=== PATIENT | male | born 1985 | race Hispanic/Latino ===

== ENCOUNTER 2017-12-28 12:49 | Emergency (ER) | payer OTHER ==
[2017-12-28 13:10] VITALS: RESP 18; O2SAT 100
[2017-12-28 13:37] LABS: BASO # 0.03 K/mm3 (0.0-2.0); BASO % 0.5 % (0.0-3.0); EOS # 0.4 (0.0-0.7); EOS % 6.3 % (1.5-5.0); GRAN # 3.64 (1.4-6.5); GRAN % 57.1 % (50.0-68.0); HEMOGLOBIN 14.7 g/dL (14.0-18.0); LYMPH # 1.9 (1.2-3.4); LYMPH % 29.7 % (22.0-35.0); MEAN CELL VOLUME 88.9 fl (80.0-105.0); MEAN CORPUSCULAR HEMOGLOBIN 30.8 pg (25.0-35.0); MEAN CORPUSCULAR HGB CONC 34.6 g/dl (31.0-37.0); MONO # 0.4 (0.1-0.6); MONO % 6.4 % (1.0-6.0); RBC 4.78 10^6/uL (3.5-6.1); RED CELL DISTRIBUTION WIDTH 12.5 % (11.5-14.5); WHITE BLOOD COUNT 6.4 10^3/ul (4.5-11.0)
--- NOTE | 2017-12-28 13:45 | RAD ---
HISTORY: chest pain COMPARISON: None available TECHNIQUE: Chest, one view. FINDINGS: LUNGS: No focal consolidation. Please note that chest x-ray has limited sensitivity for the detection of pulmonary masses. PLEURA: No significant pleural effusion identified. No definite pneumothorax . CARDIOVASCULAR: The cardiomediastinal silhouette appears within normal limits of size. OSSEOUS STRUCTURES: No acute osseous abnormality identified. VISUALIZED UPPER ABDOMEN: Unremarkable. OTHER FINDINGS: None. IMPRESSION: No focal consolidation, significant pleural effusion, or definite pneumothorax identified.
[2017-12-28 13:49] LABS: INR 1.08; PARTIAL THROMBOPLASTIN TIME 24.8 Seconds (25.1-36.5); PROTHROMBIN TIME 12.3 SECONDS (9.4-12.5)
[2017-12-28 13:51] LABS: ALB/GLOB RATIO 1.5 (1.1-1.8); ALBUMIN 4.2 g/dL (3.0-4.8); ALT/SGPT 28 U/L (7-56); AST/SGOT 20 U/L (17-59); BLOOD UREA NITROGEN 11 mg/dL (7-21); CALCIUM 9.3 mg/dL (8.4-10.5); GFR NON-AFRICAN AMERICAN > 60
--- NOTE | 2017-12-28 13:59 | ED PDOC ---
Arrival/HPI - General Chief Complaint: Anxiety Time Seen by Provider: 12/28/17 13:19 Historian: Patient - History of Present Illness Narrative History of Present Illness (Text): 12/28/17 13:51 32yo male with pmhx of panic attack, bipolar who was bib EMS from [facility] complaint chest tightness, and feeling of lightheadedness. States he was started on Lamicatal 2weeks ago. Also notes that he used Marijuana this morning , but he have used it before. states the symptoms started after using the Marijuana. states he is stressed at work. Denies diaphoresis, fever, chills, nausea, vomiting, diarrhea, focal weakness, headache, visual changes, any other complaint. Past Medical History - Provider Review Nursing Documentation Reviewed: Yes - Infectious Disease Hx of Infectious Diseases: None - Cardiac Hx Cardiac Disorders: No - Pulmonary Hx Respiratory Disorders: No - Endocrine/Metabolic Hx Endocrine Disorders: No - Psychiatric Hx Psychophysiologic Disorder: Yes Hx Bipolar Disorder: Yes Hx Substance Use: Yes - Anesthesia Hx Anesthesia: No Family/Social History - Physician Review Nursing Documentation Reviewed: Yes Family/Social History: Unknown Family HX Smoking Status: Current Some Days Smoker Hx Alcohol Use: No Hx Substance Use: Yes Substance used: marijuana Allergies/Home Meds Allergies/Adverse Reactions: Allergies seafood Allergy (Uncoded 12/28/17 13:18) RASH Home Medications: Home Meds Medication Instructions Recorded Confirmed lamoTRIgine [LaMICtal] 50 mg PO BID 12/28/17 12/28/17 Review of Systems - Physician Review All systems were reviewed & negative as marked: Yes - Review of Systems Constitutional: Normal Eyes: Normal ENT: Normal Respiratory: Normal Cardiovascular: Chest Pain. absent: Palpitations, Edema, Calf Pain Gastrointestinal: Normal Genitourinary Male: Normal Musculoskeletal: Normal Skin: Normal Neurological: Normal Endocrine: Normal Hemo/Lymphatic: Normal Psychiatric: Normal Physical Exam Vital Signs Reviewed: Yes Vital Signs Temp Pulse Resp BP Pulse Ox 12/28/17 15:35 98 F 68 18 130/68 100 12/28/17 13:09 98.3 F 71 18 142/65 100 Temperature: Afebrile Blood Pressure: Normal Pulse: Regular Respiratory Rate: Normal Appearance: Positive for: Well-Appearing, Non-Toxic, Comfortable Pain Distress: None Mental Status: Positive for: Alert and Oriented X 3 - Systems Exam Head: Present: Atraumatic, Normocephalic Pupils: Present: PERRL Extroacular Muscles: Present: EOMI Conjunctiva: Present: Normal Mouth: Present: Moist Mucous Membranes Neck: Present: Normal Range of Motion Respiratory/Chest: Present: Clear to Auscultation, Good Air Exchange. No: Respiratory Distress, Accessory Muscle Use Cardiovascular: Present: Regular Rate and Rhythm, Normal S1, S2. No: Murmurs Abdomen: No: Tenderness, Distention, Peritoneal Signs Back: Present: Normal Inspection Upper Extremity: Present: Normal Inspection. No: Cyanosis, Edema Lower Extremity: Present: Normal Inspection. No: Edema Neurological: Present: GCS=15, CN II-XII Intact, Speech Normal Skin: Present: Warm, Dry, Normal Color. No: Rashes Psychiatric: Present: Alert, Oriented x 3, Normal Insight, Normal Concentration Medical Decision Making ED Course and Treatment: 12/28/17 19:43 Pt in ED for stated history. He was not in any distress in ED. He notes that he had similar episode the last time he had panic attack. EKG NSR #[id number] Lab was ordered and unremarkable. UDS +THC Result was DW the pt. He noted that his symptoms resolved in ED and was DC home. - Lab Interpretations Lab Results: 12/28/17 13:20 12/28/17 13:20 Lab Results 12/28/17 14:20: Urine Opiates Screen Negative, Urine Methadone Screen Negative, Ur Barbiturates Screen Negative, Ur Phencyclidine Scrn Negative, Ur Amphetamines Screen Negative, U Benzodiazepines Scrn Negative, U Oth Cocaine Metabols Negative, U Cannabinoids Screen Positive H 12/28/17 14:20: Urine Color Yellow, Urine Appearance Clear, Urine pH 6.5, Ur Specific [place] 1.025, Urine Protein Negative, Urine Glucose (UA) Negative, Urine Ketones Negative, Urine Blood Negative, Urine Nitrate Negative, Urine Bilirubin Negative, Urine Urobilinogen 0.2, Ur Leukocyte Esterase Negative 12/28/17 13:20: Sodium 142, Potassium 3.9, Chloride 102, Carbon Dioxide 29, Anion Gap 15, BUN 11, Creatinine 1.0, Est GFR ( Amer) > 60, Est GFR (Non- Af Amer) > 60, Random Glucose 125 H, Calcium 9.3, Magnesium 1.8, Total Bilirubin 0.5, AST 20, ALT 28, Alkaline Phosphatase 50, Lactate Dehydrogenase 290 L, Total Creatine Kinase 82, Troponin I < 0.01, Total Protein 7.0, Albumin 4.2, Globulin 2.8, Albumin/Globulin Ratio 1.5 12/28/17 13:20: PT 12.3, INR 1.08, APTT 24.8 L 12/28/17 13:20: WBC 6.4, RBC 4.78, Hgb 14.7, Hct 42.5, MCV 88.9, MCH 30.8, MCHC 34.6, RDW 12.5, Plt Count 197, MPV 10.0, Gran % 57.1, Lymph % (Auto) 29.7, [place] % (Auto) 6.4 H, Eos % (Auto) 6.3 H, Baso % (Auto) 0.5, Gran # 3.64, Lymph # ( Auto) 1.9, [place] # (Auto) 0.4, Eos # (Auto) 0.4, Baso # (Auto) 0.03 - RAD Interpretation Radiology Orders: 12/28/17 13:20 CHEST PORTABLE [RAD] Stat Disposition/Present on Arrival - Present on Arrival Any Indicators Present on Arrival: No History of DVT/PE: No History of Uncontrolled Diabetes: No Urinary Catheter: No History of Decub. Ulcer: No History Surgical Site Infection Following: None - Disposition Have Diagnosis and Disposition been Completed?: Yes Diagnosis: Panic attack, Substance abuse Disposition: HOME/ ROUTINE Disposition Time: 15:05 Patient Plan: Discharge Condition: STABLE Discharge Instructions (ExitCare): Panic Disorder (DC), Drug Abuse Treatment Additional Instructions: Follow up with your Doctor Return to ED for any new symptoms Referrals: Dara Chan MD [Medical Doctor] - Follow up with primary [facility] [Outside] - Follow up with primary Forms: Photoblog (Chinese)
[2017-12-28 14:02] LABS: TROPONIN I < 0.01 ng/mL
[2017-12-28 14:28] LABS: PH,URINE 6.5 (4.7-8.0); URINE APPEARANCE CLEAR (CLEAR); URINE BILIRUBIN NEGATIVE (NEGATIVE); URINE BLOOD NEGATIVE (NEGATIVE); URINE COLOR YELLOW (YELLOW); URINE GLUCOSE (UA) NEGATIVE (NEGATIVE); URINE LEUKOCYTE ESTERASE NEGATIVE Leu/uL (NEGATIVE); URINE PROTEIN NEGATIVE mg/dL (<30 mg/dL); URINE UROBILINOGEN 0.2 E.U./dL (<1 E.U./dL)
[2017-12-28 14:53] LABS: BARBITURATES, UR NEGATIVE (NEGATIVE); BENZODIAZEPINES, UR NEGATIVE (NEGATIVE); OPIATES, UR NEGATIVE (NEGATIVE); PHENCYCLIDINE, UR NEGATIVE (NEGATIVE)
[2017-12-28 15:37] VITALS: BP 130/68; PULSE 68; TEMP 98
--- NOTE | 2017-12-29 22:12 | CARD ---
APPROVED REPORT Date of service: 12/28/2017 EKG Measurement Heart [id number] <Conclusion> Normal sinus rhythm Normal ECG
== END 2017-12-28 15:35 | disposition home or self-care (01) ==
LOC: ED 12:49
DX: F41.0 Panic disorder [episodic paroxysmal anxiety] (principal); F19.10 Other psychoactive substance abuse, uncomplicated; F31.9 Bipolar disorder, unspecified